=== PATIENT | female | born 1985 | race Two or more races ===

== ENCOUNTER 2016-11-18 08:55 | Emergency (ER) | payer OTHER, MEDICAID ==
[~2016-11-18] VITALS: Ht 160 cm; Wt 87.1 kg
[2016-11-18 09:28] LABS: Urine RBC None Seen /hpf (0 - 4)
[2016-11-18] MEDS ORDERED: SODIUM CHLORIDE 0.9% 1,000 ML IVB ONE (09:29)
[2016-11-18] MEDS ORDERED: METOCLOPRAMIDE HCL 5MG/ml INJ 2ml VIAL IV ONE (09:30)
[2016-11-18] MEDS ORDERED: KETOROLAC TROMETH 30 MG/ML 1ML VIAL IV ONE (09:30)
[2016-11-18 09:41] LABS: Basophils # (auto) 0.1 uL; Basophils % (auto) 0.8 % (0.0-2.0); Eosinophils # (auto) 0.2 uL; Eosinophils % (auto) 3.4 % (0.0-7.0); Hematocrit 39.5 % (36.0-46.0); Hemoglobin 13.3 g/dL (12.2-16.2); Lymphocytes # (auto) 1.5 uL; Lymphocytes % (auto) 21.8 % (10.0-50.0); Mean Corpuscular Hemoglobin 28.2 pg (28.0-32.0); Mean Corpuscular Hgb Conc. 33.7 g/dL (32.0-36.0); Mean Corpuscular Volume 83.8 fL (80.0-100.0); Mean Platelet Volume 7.9 fL (7.4-10.4); Monocytes # (auto) 0.2 uL; Monocytes % (auto) 3.1 % (0.0-12.0); Neutrophils # (auto) 4.9 uL; Neutrophils % (auto) 70.9 % (37.0-80.0); Platelet Count (auto) 314 10^3/uL (140-450); Red Cell Distribution Width 12.6 % (11.6-16.0); White Blood Cell 6.9 10^3/uL (4.4-10.8)
[2016-11-18 10:36] LABS: Albumin 3.7 g/dL (3.4-5.0); BUN/Creatinine Ratio 18.5; Bilirubin, Total 0.4 mg/dL (0.2-1.0); Calcium 8.6 mg/dL (8.5-10.1); Potassium 4.1 mmol/L (3.5-5.1); Total Protein 7.1 g/dL (6.4-8.2)
[2016-11-18 10:41] LABS: Urine Bilirubin Negative (Negative); Urine Blood Negative /uL (Negative); Urine Color Yellow (Yellow); Urine Glucose Normal (Normal); Urine Ketone Negative (Negative); Urine Nitrite Negative (Negative); Urine Squamous Epithelial Cell FEW /hpf (<5); Urine Urobilinogen Normal (Negative); Urine pH 6.5 (5.0-8.0)
[2016-11-18 11:12] LABS: Magnesium 2.5 mg/dL (1.6-2.6)
[2016-11-18 11:34] VITALS: BP 105/34
== END 2016-11-18 13:10 | disposition home or self-care (01) ==
LOC: ER 08:56
DX: K80.70 Calculus of gallbladder and bile duct without cholecystitis without obstruction (principal); K76.0 Fatty (change of) liver, not elsewhere classified; E66.9 Obesity, unspecified; Z68.34 Body mass index [BMI] 34.0-34.9, adult
CPT/HCPCS: 36415; 76705; 80053; 81001; 81025; 83690; 83735; 84443; 85025; 96361; 96374; 96375; 99285; J1885; J2765; J7030

== ENCOUNTER 2019-04-26 07:40 | Emergency (ER) | payer MEDICAID, OTHER ==
[~2019-04-26] VITALS: Ht 160 cm; Wt 86.2 kg
[2019-04-26 07:47] VITALS: BP 110/57
[2019-04-26] MEDS ORDERED: MECLIZINE HCL 25 MG TAB PO ONE (08:15)
[2019-04-26 08:17] LABS: Basophils # (auto) 0 uL; Basophils % (auto) 0.6 % (0.0-2.0); Eosinophils # (auto) 0.1 uL; Eosinophils % (auto) 2.5 % (0.0-7.0); Hematocrit 41.4 % (36.0-46.0); Hemoglobin 13.8 g/dL (12.2-16.2); Lymphocytes # (auto) 1.8 uL; Lymphocytes % (auto) 34.3 % (10.0-50.0); Mean Corpuscular Hemoglobin 29.1 pg (28.0-32.0); Mean Corpuscular Hgb Conc. 33.4 g/dL (32.0-36.0); Mean Corpuscular Volume 87.2 fL (80.0-100.0); Monocytes # (auto) 0.4 uL; Monocytes % (auto) 6.8 % (0.0-12.0); Neutrophils % (auto) 55.8 % (37.0-80.0); Nucleated Red Blood Cells % 0.1 %; Platelet Count (auto) 315 10^3/uL (140-450); Red Blood Cells 4.75 10^6/uL (4.0-5.20); White Blood Cell 5.4 10^3/uL (4.4-10.8)
[2019-04-26 08:34] LABS: Albumin 3.6 g/dL (3.4-5.0); BUN/Creatinine Ratio 15.2; Calcium 8.6 mg/dL (8.5-10.1); Potassium 4.1 mmol/L (3.5-5.1)
[2019-04-26 08:37] LABS: Bilirubin, Total 0.3 mg/dL (0.2-1.0); Total Protein 7.1 g/dL (6.4-8.2)
== END 2019-04-26 09:29 | disposition home or self-care (01) ==
LOC: ER 07:40
DX: R42 Dizziness and giddiness (principal); F41.9 Anxiety disorder, unspecified; K21.9 Gastro-esophageal reflux disease without esophagitis
CPT/HCPCS: 36415; 70450; 80053; 81002; 81025; 85025; 99284; J8597